=== PATIENT | female | born 1945 | race Caucasian/White ===

== ENCOUNTER 2016-11-27 12:41 | Emergency (ER) | payer OTHER, BC ==
[2016-11-27 12:49] VITALS: BP 115/55; PULSE 78; TEMP 98; BMI 25.0
--- NOTE | 2016-11-27 12:51 | PDOC ---
History of Present Illness - General Chief Complaint: Foreign Body (FB) Stated Complaint: RIGHT THUMB FB Time Seen by Provider: 11/27/16 12:43 History Source: Patient Exam Limitations: No Limitations - History of Present Illness Initial Comments: 70 yo F history hypertension, hypothyroid presents with FB to R thumb. She states that she picked up a box and there was a large splinter underneath, which went into her thumb. She was able to remove most of it herself, but there is still a small piece she could not reach, despite attempting to remove it with a pin. No other injuries. No swelling, no pain. Last tetanus 2 years ago. Past History - Past Medical History Allergies/Adverse Reactions: Allergies Allergy/AdvReac Type Severity Reaction Status Date / Time No Known Allergies Allergy Verified 11/27/16 12:42 Home Medications: Ambulatory Orders Atenolol [Tenormin -] 25 mg PO DAILY 11/27/16 Citalopram Hydrobromide [Celexa -] 20 mg PO DAILY 11/27/16 Levothyroxine [Synthroid -] 50 mcg PO DAILY 11/27/16 Cardiac Disorders: Yes Thyroid Disease: Yes - Surgical History Cardiac Surgery: Yes (ABLATION) - Immunization History Tetanus Status: Less than 5 years (2014) - Suicide/Smoking/Psychosocial Hx Smoking History: Never smoked Hx Alcohol Use: No Drug/Substance Use Hx: No Substance Use Type: Alcohol Review of Systems - Review of Systems Able to Perform ROS?: Yes Comments:: GENERAL/CONSTITUTIONAL: No fever or chills. No weakness. HEAD, EYES, EARS, NOSE AND THROAT: No change in vision. No ear pain or discharge. No sore throat. MUSCULOSKELETAL: No joint or muscle swelling or pain. No neck or back pain. SKIN: No rash. +FB to R thumb. NEUROLOGIC: No headache, vertigo, loss of consciousness, or change in strength/ sensation. *Physical Exam - Vital Signs Last Vital Signs Temp Pulse Resp BP Pulse Ox 98 F 78 18 115/55 97 11/27/16 12:42 11/27/16 12:42 11/27/16 12:42 11/27/16 12:42 11/27/16 12:42 - Physical Exam Comments: GENERAL: Awake, alert, and fully oriented, in no acute distress HEAD: No signs of trauma EXTREMITIES: R thumb with small puncture wound to lateral portion of the thumb. Slight protrusion. Remainder of extremities with normal range of motion, no edema. No clubbing or cyanosis. No cords, erythema, or tenderness NEUROLOGICAL: Cranial nerves II through XII grossly intact. Normal speech, normal gait SKIN: Warm, Dry, normal turgor, no rashes or lesions noted. Procedures - Additional Procedures Additional Procedures: other Progress: 11/27/16 14:03 Digital block performed to the R thumb. Using a #11 blade, attempted to extend the wound, however, the splinter was too deep to remove. Medical Decision Making - Medical Decision Making 11/27/16 14:05 Opted not to incise any further, and instead use warm salt water soaks to attempt to remove the splinter. Tdap is up to date. No signs of infection at present. Patient counseled to return if any swelling, redness, or streaking, as she may require an antibiotic at that time. She is not a diabetic and not immunocompromised, therefore no antibiotic prophylaxis. *DC/Admit/Observation/Transfer Diagnosis at time of Disposition: Foreign body finger - Discharge Dispostion Disposition: HOME Condition at time of disposition: Stable Admit: No
== END 2016-11-27 14:09 | disposition home or self-care (01) ==
LOC: FER 12:41
PROC: 0HCFXZZ Extirpation of Matter from Right Hand Skin, External Approach (ICD-10-PCS; principal; 2016-11-27)
DX: S60.351A Superficial foreign body of right thumb, initial encounter (principal); E07.9 Disorder of thyroid, unspecified; I51.9 Heart disease, unspecified; X58.XXXA Exposure to other specified factors, initial encounter; Y93.89 Activity, other specified; Y92.9 Unspecified place or not applicable
CPT/HCPCS: 10120; 99281-25

== ENCOUNTER 2018-12-02 10:20 | Emergency (ER) | payer BC, OTHER ==
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
[2018-12-02 10:56] VITALS: TEMP 97.8; BMI 24.6
[2018-12-02 11:38] VITALS: PULSE 55
[2018-12-02 11:42] LABS: BASO % 0.5 % (0-2.0); EOS % 2.3 % (0-4.5); HEMOGLOBIN 11.6 GM/dl (10.7-15.3); LYMPH % 36.3 % (8-40); MCH 35.1 pg (25.7-33.7); MCHC 34.1 g/dl (32.0-36.0); MEAN CELL VOLUME 102.9 fl (80-96); MEAN PLT VOLUME 8.5 fl (7.5-11.1); MONO % 15.2 % (3.8-10.2); NEUT % 45.7 % (42.8-82.8); PLATELET COUNT 184 K/MM3 (134-434); RDW 13.5 % (11.6-15.6); WHITE BLOOD COUNT 3.3 K/mm3 (4.0-10.8)
[2018-12-02] MEDS ORDERED: ACETAMINOPHEN 325 MG TABLET (FP) PO ONE (11:46)
[2018-12-02] MEDS ORDERED: LIDOCAINE 5% TOPICAL PATCH TP ONE (11:46)
[2018-12-02 11:48] LABS: INR 1.08 (0.82-1.09); PROTHROMBIN TIME (PATIENT) 12.1 SEC (10.2-13.0)
[2018-12-02 11:52] LABS: ALBUMIN 4.1 g/dl (3.4-5.0); BILIRUBIN,TOTAL 0.5 mg/dl (0.2-1); CALCIUM 9.3 mg/dl (8.5-10); CREATININE 0.8 mg/dl (0.55-1.3); MAGNESIUM 2.3 mg/dL (1.8-2.4); POTASSIUM 4.2 mmol/L (3.5-5.1); TOT PROT 7.1 g/dl (6.4-8.2)
[2018-12-02] MEDS ORDERED: LIDOCAINE 5% TOPICAL PATCH ONE (11:52)
[2018-12-02] MEDS ORDERED: ACETAMINOPHEN 325 MG TABLET (FP) ONE (11:52)
[2018-12-02 14:03] VITALS: BP 118/64
--- NOTE | 2018-12-03 11:04 | EKG ---
Test Reason : Blood Pressure : / mmHG Vent. Rate : 061 BPM Atrial Rate : 061 BPM P-R Int : 232 ms QRS Dur : 066 ms QT Int : 454 ms P-R-T Axes : 000 029 057 degrees QTc Int : 457 ms SINUS RHYTHM WITH 1ST DEGREE A-V BLOCK WITH OCCASIONAL PREMATURE VENTRICULAR COMPLEXES OTHERWISE NORMAL ECG NO PREVIOUS ECGS AVAILABLE Confirmed by Richard Patton ([id number]) on 12/03/2018 11:03:48 AM Referred By: Confirmed By:Richard Patton
--- NOTE | 2018-12-03 11:04 | EKG ---
Test Reason : Blood Pressure : / mmHG Vent. Rate : 048 BPM Atrial Rate : 048 BPM P-R Int : 216 ms QRS Dur : 058 ms QT Int : 508 ms P-R-T Axes : 018 026 070 degrees QTc Int : 453 ms SINUS BRADYCARDIA WITH 1ST DEGREE A-V BLOCK LOW VOLTAGE QRS NONSPECIFIC ST AND T WAVE ABNORMALITY ABNORMAL ECG WHEN COMPARED WITH ECG OF 02-DEC-2018 11:09, PREMATURE VENTRICULAR COMPLEXES ARE NO LONGER PRESENT Confirmed by Richard Patton ([id number]) on 12/03/2018 11:03:43 AM Referred By: Confirmed By:Richard Patton
== END 2018-12-02 16:59 | disposition home or self-care (01) ==
LOC: FER 10:20
DX: R07.9 Chest pain, unspecified (principal); S20.219A Contusion of unspecified front wall of thorax, initial encounter; V49.9XXA Car occupant (driver) (passenger) injured in unspecified traffic accident, initial encounter; Y93.89 Activity, other specified; Y92.410 Unspecified street and highway as the place of occurrence of the external cause; I48.91 Unspecified atrial fibrillation; M41.9 Scoliosis, unspecified; E03.9 Hypothyroidism, unspecified; E07.9 Disorder of thyroid, unspecified
CPT/HCPCS: 36415; 71046-TC-FY; 71260-TC; 80053; 82550; 82553; 83735; 84484; 85025; 85610; 93005; 99285-25